=== PATIENT | female | born 1965 | race Caucasian/White ===

== ENCOUNTER 2016-03-11 16:02 | Emergency (ER) | payer BC ==
--- NOTE | 2016-03-11 16:22 | Emergency Department Record ---
History of Present Illness - General Chief complaint: Polyuria Stated complaint: BLOOD IN URIN,PAIN Time Seen by Provider: 03/11/16 16:21 Source: Patient Mode of Arrival: Ambulatory Limitations: No limitations - History of Present Illness Initial comments: The patient is here due to a one day hx of dysuria, hematuria, pelvic cramping and low back pain. She feels like she has a bad UTI. There is no reported nausea , vomiting, fever, chills, or AP. MD Complaint: Pelvic pain -: Awoke with symptoms Location: Labia, LLQ, RLQ Radiation: L flank, R flank Severity: Severe Severity scale (1-10): 9 Quality: Aching, Burning Consistency: Constant Improves with: Other Worsens with: Urination Associated Symptoms: Abdominal pain, Dysuria - Related Data Home Medications Medication Instructions Recorded Confirmed Last Taken Bupropion HCl [Bupropion Xl] 150 mg 03/11/16 1 Day Ago Previous Rx's Medication Instructions Recorded Ciprofloxacin HCl [Cipro] 500 mg PO Q12HR #13 tablet 03/11/16 Phenazopyridine HCl [Pyridium] 100 mg PO TID #6 tablet 03/11/16 Allergies Allergy/AdvReac Type Severity Reaction Status Date / Time No Known Drug Allergies Allergy Verified 11/30/14 10:05 Travel Screening - Travel/Exposure Within Last 30 Days Have you traveled within the last 30 days?: No - Travel/Exposure Within Last Year Have you traveled outside the [place] in the last year?: No - Additonal Travel Details Have you been exposed to anyone with a communicable illness?: No - Travel Symptoms Symptom Screening: None Review of Systems Constitutional: Denies: Chills, Fever, Malaise Eyes: Denies: Eye discharge ENT: Denies: Congestion Respiratory: Denies: Cough, Dyspnea Cardiovascular: Denies: Arrhythmia, Chest pain Past Medical History - SOCIAL HISTORY Smoking Status: Never smoker Alcohol Use: Rare - RESPIRATORY Hx Respiratory Disorders: Yes - CARDIOVASCULAR Hx Cardio Disorders: Yes Hx Irregular Heartbeat: Yes (in past no probs now) - NEURO Hx Neuro Disorders: No - GI Hx GI Disorders: Yes Comment:: ulcerative colitis under control - Hx Genitourinary Disorders: No - ENDOCRINE Hx Endocrine Disorders: No - MUSCULOSKELETAL Hx Musculoskeletal Disorders: Yes Comment:: pain left shoulder due to rotator cuff tear - PSYCH Hx Psych Problems: Yes Hx Anxiety: Yes - HEMATOLOGY/ONCOLOGY Hx Hematology/Oncology Disorders: No Family Medical History Any Significant Family History?: Yes Hx Cancer: Mother *Cancer Comment: cervical Hx Heart Disease: Grandparents Physical Exam - General General Appearance: Alert, Oriented x3, Cooperative, No acute distress - Head Head exam: Atraumatic, Normocephalic, Normal inspection - Eye Eye exam: Normal appearance, PERRL - Neck Neck exam: Normal inspection, Full ROM. negative: Tenderness - Respiratory Respiratory exam: Normal lung sounds bilaterally. negative: Respiratory distress - Cardiovascular Cardiovascular Exam: Regular rate, Normal rhythm, Normal heart sounds - GI/Abdominal GI/Abdominal exam: Soft, Normal bowel sounds, Tenderness (There is mild to moderate pelvic tenderness to palpation.). negative: Guarding, Rebound, Rigid - Back Back exam: Reports: Normal inspection. Denies: CVA tenderness (R), CVA tenderness (L), Paraspinal tenderness, Vertebral tenderness Course Vital Signs 03/11/16 16:12 Temperature 98.3 F Pulse Rate 99 H Respiratory 15 Rate Blood Pressure 184/123 Pulse Ox 96 - Reevaluation(s) Reevaluation #1: The patient is doing much better at this time. She is resting comfortably with MUCH less pain and discomfort. 03/11/16 17:17 Reevaluation #2: The patient feels WORLDS better at this time and is very comfortable with basically no pain. I did explain the lab tests and the fact that she appears to have a UTI with bladder spasms. We will continue the Cipro and Pyridium and have her F/U with her PCP this week if needed. On exam her abdomen is very soft and nontender in all 4 quads. 03/11/16 17:33 03/11/16 18:45 Medical Decision Making - Data Complexity MDM Data: Labs Ordered and/or Reviewed, X-Ray Ordered and/or Reviewed - Lab Data Result diagrams: 03/11/16 16:40 03/11/16 16:40 - Radiology Data Radiology results: Report reviewed (Abd/pelvis CT: WNL, No acute changes.) Disposition Disposition: Discharge Clinical Impression: Cystitis Disposition: Home, Self-Care Condition: (1) Good Instructions: Urinary Tract Infection in Women (ED) Additional Instructions: Please drink plenty of fluids. Take Motrin or Tylenol for pain along with the Cipro and Pyridium. Please see your PCP if not better in 2-3 days and return to the ER for any increased pain, fever, or vomiting. Prescriptions: Ciprofloxacin HCl [Cipro] 500 mg PO Q12HR #13 tablet Phenazopyridine HCl [Pyridium] 100 mg PO TID #6 tablet Forms: Patient Portal Access Time of Disposition: 17:36
[2016-03-11] MEDS ORDERED: 0.9 % SODIUM CHLORIDE 1,000 ML BAG IV ONE (16:29)
[2016-03-11] MEDS ORDERED: ONDANSETRON HCL IV 4 MG/2 ML VIAL IV ONE (16:29)
[2016-03-11] MEDS ORDERED: PHENAZOPYRIDINE HCL 95 MG TABLET PO ONE (16:30)
[2016-03-11] MEDS ORDERED: KETOROLAC 30 MG/ML VIAL IVP ONE (16:31)
[2016-03-11 17:01] LABS: BASO % 0.2 % (0-6); EOS % 0.4 % (0-6); GRAN % 70.6 % (47-80); HEMATOCRIT 41.5 % (35.0-47.0); HEMOGLOBIN 13.9 gm/dl (11.6-16.0); LYMPH % 21.7 % (16-45); MEAN CELL VOLUME 96.7 fl (81-97); MEAN CORPUSCULAR HEMOGLOBIN 32.4 pg (27-33); MEAN CORPUSCULAR HGB CONC 33.5 g/dl (32-36); MEAN PLATELET VOLUME 10.1 fl (7.4-10.4); MONO % 7.1 % (0-9); PLATELET COUNT 352 K/uL (130-400); RED BLOOD COUNT 4.29 M/uL (3.80-5.40); WHITE BLOOD COUNT W/O DIFF 14.4 K/uL (4.2-12.2)
[2016-03-11 17:02] LABS: URINE APPEARANCE CLEAR; URINE BILIRUBIN NEGATIVE (NEGATIVE); URINE BLOOD LARGE (NEGATIVE); URINE COLOR RED; URINE GLUCOSE (UA) NEGATIVE (NEGATIVE); URINE KETONE NEGATIVE (NEGATIVE); URINE LEUKOCYTE ESTERASE MODERATE (NEGATIVE); URINE NITRITE NEGATIVE (NEGATIVE); URINE UROBILINOGEN 0.2 E.U./dL (0.20 - 1.00)
[2016-03-11 17:15] LABS: URINE EPITHELIAL CELLS 0 - 2 (FEW)
[2016-03-11 17:16] LABS: ANION GAP 12.3 (7-16); BLOOD UREA NITROGEN 15 mg/dL (7-17); CARBON DIOXIDE 25.7 mmol/L (22-30); CREATININE 0.7 mg/dL (0.52-1.04); EST GLOMERULAR FILTRATION RATE > 60 ml/min; GLUCOSE,RANDOM 117 mg/dL (70-110); URINE BACTERIA FEW
[2016-03-11] MEDS ORDERED: CIPROFLOXACIN HCL 500 MG TABLET PO ONE (17:16)
--- NOTE | 2016-03-14 14:43 | CT SCAN REPORT ---
EXAM: CT SCAN OF THE ABDOMEN AND PELVIS HISTORY: PATIENT HAS HEMATURIA. PATIENT HAS LOW BACK PAIN. TECHNIQUE: Serial axial CT scan of the abdomen and pelvis was performed at 3.75 mm intervals from the dome of the diaphragm down to the pubic symphysis without the use of intravenous or oral contrast. No comparison CT's are available. FINDINGS: The lung windows of the lung bases demonstrate no CT evidence of a focal infiltrate or pleural effusion. The visualized heart size and contour is within normal limits. Small hiatal hernia is noted. The liver, spleen, pancreas, bilateral adrenal glands, and gallbladder are unremarkable. The right kidney is inferiorly located and rotated so that's hilum is anterior. There is no CT evidence of hydronephrosis or hydroureter within either kidney. No renal or ureteral calculi are noted. The contour and caliber of the abdominal aorta is within normal limits. There is no CT evidence of retroperitoneal, pelvic or inguinal lymphadenopathy. The bowel gas pattern is nonspecific and nonobstructive. Occasional colonic diverticula are noted within the sigmoid colon without CT evidence of diverticulitis. There is no CT evidence of free intraperitoneal fluid or free intraperitoneal air. The urinary bladder is unremarkable. The uterus is unremarkable. The bone windows demonstrate no CT evidence of an acute fracture or dislocation of the visualized osseous structures of the abdomen and pelvis. IMPRESSION: SMALL HIATAL HERNIA. OTHERWISE, NO CT EVIDENCE OF AN ACUTE INTRAABDOMINAL PROCESS. NO RENAL OR URETERAL CALCULI ARE NOTED. NO HYDRONEPHROSIS OR HYDROURETER IS NOTED. JOB NUMBER: [id number] MTDD
== END 2016-03-11 17:44 | disposition home or self-care (01) ==
LOC: ER 16:02
DX: N30.01 Acute cystitis with hematuria (principal)
CPT/HCPCS: 99284 ×2; 96374; 96375; 85025; 80048; 81001; 87086; 74176; J1885; J2405; J7030